=== PATIENT | female | born 1935 | race Caucasian/White ===

== ENCOUNTER 2018-02-28 13:50 | Observation (INO) ==
[2018-02-28] MEDS ORDERED: Morphine Sulfate Inj 2 MG/ML Vial IV.PUSH PRN (20:22)
[2018-02-28] MEDS ORDERED: Ibuprofen 400 MG Tablet PO PRN (20:22)
[2018-02-28] MEDS ORDERED: Morphine Inj 4 MG/ML Vial IV.PUSH PRN ×2 (20:22)
[2018-02-28] MEDS ORDERED: Naloxone Inj 0.4 MG/ML Vial IV.PUSH PRN (20:22)
[2018-02-28] MEDS ORDERED: Bisacodyl 10 MG Supp RECTAL PRN (20:24)
[2018-02-28] MEDS ORDERED: Dextrose 50% in Water 50 ML Vial IV.PUSH PRN (20:30)
[2018-02-28] MEDS: Sod Chloride 0.9% Inj 1,000 ML IV.CONT SCH (23:18)
[2018-02-28] MEDS: Senna/Docusate Sodium 8.6/50 MG Tablet PO SCH (23:21)
[2018-02-28] MEDS: Insulin NovoLOG Aspart Correctional Sugar Inj SQ SCH (23:27)
[2018-03-01] MEDS: Insulin NovoLOG Aspart Correctional Sugar Inj SQ SCH ×4 (07:32→21:12)
[2018-03-01] MEDS: Senna/Docusate Sodium 8.6/50 MG Tablet PO SCH ×2 (08:15→21:14)
[2018-03-01 10:31] LABS: Baso % (Auto) 0.5 % (0.0-2.0); Eos # (Auto) 0.1 th/mm3 (0.0-0.4); Eos % (Auto) 1.7 % (0.0-4.0); Hematocrit 37.3 % (35.0-46.0); Hemoglobin 12.5 gm/dL (11.6-15.3); Lymph # (Auto) 1.5 th/mm3 (1.0-4.8); Lymph % (Auto) 18.6 % (9.0-44.0); Mean Corpuscular HGB Conc 33.6 % (32.0-36.0); Mean Corpuscular Hemoglobin 29.6 pg (27.0-34.0); Mean Platelet Volume 7.9 fL (7.0-11.0); Mono # (Auto) 0.7 th/mm3 (0.0-0.9); Mono % (Auto) 8.9 % (0.0-8.0); Neut # (Auto) 5.5 th/mm3 (1.8-7.7); Neut % (Auto) 70.3 % (16.0-70.0); Platelet Count 370 th/mm3 (150-450); Red Blood Count 4.23 mil/mm3 (4.00-5.30); Red Cell Distribution Width 12.6 % (11.6-17.2); White Blood Count 7.8 th/mm3 (4.0-11.0)
[2018-03-01 10:38] LABS: Chloride 95 meq/L (98-107); Sodium 130 meq/L (136-145)
[2018-03-01 10:42] LABS: Calcium 8.3 mg/dL (8.5-10.1)
[2018-03-01 10:43] LABS: Albumin 3.3 g/dL (3.4-5.0); Anion Gap 10 meq/L (5-15); Blood Urea Nitrogen 16 mg/dL (7-18); Carbon Dioxide 24.6 meq/L (21.0-32.0); Glucose,Random 118 mg/dL (74-106); Lipase 239 U/L (73-393); Magnesium 1.8 mg/dL (1.5-2.5)
[2018-03-01 10:46] LABS: Alanine Aminotransferase 732 U/L (10-53); Aspartate Aminotransferase 531 U/L (15-37); Glomerular Filtration Rate 47 mL/min (>89)
[2018-03-01 10:47] LABS: Total Protein 6.7 g/dL (6.4-8.2)
[2018-03-01 10:49] LABS: Alkaline Phosphatase 107 U/L (45-117)
--- NOTE | 2018-03-01 12:33 | P.HP ---
History of Present Illness Primary Care Physician: UNKNOWN Chief Complaint: Abdominal pain History of Present Illness: This is a 83-year-old female with a history of diabetes and hypertension. Patient presents with abdominal pain. Started 2 days prior to admission when she lost her balance and fell hitting the back of her head against the chair and the wall. She did not lose consciousness. The following morning she complained of transient neck pain, headache, nausea and vomiting. Yesterday morning she woke up with constant upper abdominal pain associated with nausea and vomiting. No hematemesis. No precipitating or alleviating factors. No fever, chills constipation or diarrhea. She reports of urinary frequency. Trauma workup was unremarkable including cervical spine CT, head CT, chest CT and abdominal CT. She was found to have abnormal liver function tests on was advised further hospitalization. At this time, she feels better but continues to have upper abdominal pain and urinary frequency. Denies nausea tolerating diet. Patient has cholelithiasis and has right upper quadrant tenderness. All other systems reviewed negative Review of Systems All other systems reviewed negative except as stated in HPI [facility] - History History Provided By: Patient - Medical History Medical History: Medical History (Last Reviewed 03/01/18 @ 12:36 by Darrion Coleman MD) Diabetes Hx of hysterectomy Hypertension - Surgical History Surgical History: Surgical History (Last Reviewed 03/01/18 @ 12:36 by Darrion Coleman MD) Hx of appendectomy Hx of tonsillectomy - Family History Family History: Family History (Last Updated 03/01/18 @ 12:36 by Darrion Coleman MD) Other No pertinent family history - Tobacco History Second Hand Smoke Exposure: No Smoking Status: Never smoker - Alcohol History How Often Do You Have a Drink Containing Alcohol: Never - Substance Use History Substance History: No History of Abuse - Travel History Recent Travel in the [place] Within the Last 8 Weeks: No Recent Travel Out of the Country Within the Last 8 Weeks: No Medications and Allergies Active Medications: Active Medications Al Hydroxide/Mg Hydroxide (Milk Of Magnesia Liq) 30 ml PO Q12H PRN PRN Reason: Mild Constipation Bisacodyl (Dulcolax Supp) 10 mg RECTAL DAILY PRN PRN Reason: SEVERE CONSITIPATION Clonidine HCl (Catapres) 0.1 mg PO Q6H PRN PRN Reason: SEE LABEL COMMENTS Last Admin: 02/28/18 23:27 Dose: 0.1 mg Dextrose (D50w Vial) 50 ml IV.PUSH UNSCH PRN PRN Reason: PER HYPOGLYCEMIA PROTOCOL Enalaprilat (Vasotec Inj) 1.25 mg IV.PUSH Q6H PRN PRN Reason: SEE LABEL COMMENTS Glucagon (Glucagon Inj) 1 mg OTHER PRN PRN PRN Reason: for Hypoglycemia Protocol Sodium Chloride (Ns Inj) 1,000 mls @ 60 mls/hr IV.CONT .[id number] [facility] Last Infusion: 03/01/18 06:21 Dose: 60 mls/hr Ceftriaxone Sodium 1,000 mg/ (Sodium Chloride) 100 mls @ 200 mls/hr IV.SIG Q24H SHA Ibuprofen (Motrin) 400 mg PO Q6HR PRN PRN Reason: PAIN SCALE 1 TO 2 Insulin Aspart (Novolog Insulin Correctional Sugar Inj) 0 unit SQ ACHS [facility]; Protocol Last Admin: 03/01/18 11:56 Dose: Not Given Lactulose (Lactulose Liq) 30 ml PO DAILY PRN PRN Reason: SEVERE CONSITIPATION Morphine Sulfate (Morphine Inj) 1 mg IV.PUSH Q3H PRN PRN Reason: PAIN 3-5; IF UABLE TO TAKE PO Morphine Sulfate (Morphine Inj) 2 mg IV.PUSH Q3H PRN PRN Reason: PAIN 6-10;IF UNABLE TO TAKE PO Morphine Sulfate (Morphine Inj) 2 mg IV.PUSH Q3H PRN PRN Reason: BREAKTHROUGH PAIN Naloxone HCl (Narcan Inj) 0.4 mg IV.PUSH UNSCH PRN PRN Reason: SEE LABEL COMMENTS Ondansetron HCl (Zofran Inj) 4 mg IV.PUSH Q6H PRN PRN Reason: NAUSEA OR VOMITING Last Admin: 03/01/18 09:15 Dose: 4 mg Senna/Docusate Sodium (Taryn-Colace) 1 tab PO BID [facility] Last Admin: 03/01/18 08:15 Dose: Not Given Sennosides (Senokot) 17.2 mg PO Q12H PRN PRN Reason: Moderate Constipation Allergies Allergy/AdvReac Type Severity Reaction Status Date / Time codeine Allergy Vomiting Verified 02/28/18 14:20 Home Medications Medication Instructions Recorded Confirmed Type glyburide 2.5 mg PO DAILY 02/28/18 02/28/18 History losartan 100 mg PO DAILY 02/28/18 02/28/18 History metoprolol succinate [Toprol XL] 50 mg PO DAILY 02/28/18 02/28/18 History zolpidem [Ambien] 10 mg PO HS 02/28/18 02/28/18 History Exam Vital signs: Vital Signs 02/28/18 23:28 02/28/18 23:47 03/01/18 04:00 Temperature 96.9 F L 96.4 F L Pulse Rate 87 85 67 Respiratory Rate 18 18 Blood Pressure 193/87 H 124/60 Pulse Oximetry 96 100 03/01/18 08:00 Temperature 97.6 F Pulse Rate 78 Respiratory Rate 16 Blood Pressure 124/68 Pulse Oximetry 95 Intake & Output 02/28/18 03/01/18 03/01/18 18:59 06:59 18:59 Intake Total 510 / 510 Balance 510 / 510 Weight 57.3 kg Intake: IV 390 / 390 NS Inj 1,000 ML @ 60 mls/hr IV. 390 / 390 CONT .[id number] SHA Rx#: [id number] Oral 120 / 120 Other: # Voids 1 Date of Last Bowel Movement 02/27/18 02/27/18 Weight On Admission 57.2 kg Narrative: GENERAL: Well-developed, well-nourished in no distress SKIN: Warm and dry. HEAD: Atraumatic. Normocephalic. EYES: Pupils equal and round. No scleral icterus. No injection or drainage. ENT: No nasal bleeding or discharge. Mucous membranes pink and moist. NECK: Trachea midline. No JVD. Tender posterior neck. Full range of movement. CARDIOVASCULAR: Regular rate and rhythm. RESPIRATORY: No accessory muscle use. Clear to auscultation. Breath sounds equal bilaterally. GASTROINTESTINAL: Abdomen soft, tender right and left upper quadrants, nondistended. MUSCULOSKELETAL: Extremities without clubbing, cyanosis, or edema. No obvious deformities. No CVA tenderness NEUROLOGICAL: Awake and alert. No obvious cranial nerve deficits. Motor grossly within normal limits. Five out of 5 muscle strength in the arms and legs. Normal speech. PSYCHIATRIC: Appropriate mood and affect; insight and judgment normal. Results - Labs CBC & Chem 7: 03/01/18 10:06 03/01/18 10:06 Labs: Laboratory Results - last 24 hr 02/28/18 03/01/18 03/01/18 23:26 07:11 10:06 CBC w Diff Auto diff final WBC 7.8 RBC 4.23 Hgb 12.5 D Hct 37.3 MCV 88.0 MCH 29.6 MCHC 33.6 RDW 12.6 Plt Count 370 MPV 7.9 Neut % (Auto) 70.3 H Lymph % (Auto) 18.6 Kaufman % (Auto) 8.9 H Eos % (Auto) 1.7 Baso % (Auto) 0.5 Neut # (Auto) 5.5 Lymph # (Auto) 1.5 Kaufman # (Auto) 0.7 Eos # (Auto) 0.1 Baso # (Auto) 0.0 WBC Differential . Differential Comment . Sodium Potassium Chloride Carbon Dioxide Anion Gap BUN Creatinine Estimated GFR POC Glucose 137 H 128 H Random Glucose Calcium Magnesium Total Bilirubin AST ALT Alkaline Phosphatase Total Protein Albumin Lipase 03/01/18 10 10:06 11:49 CBC w Diff WBC RBC Hgb Hct MCV MCH MCHC RDW Plt Count MPV Neut % (Auto) Lymph % (Auto) Kaufman % (Auto) Eos % (Auto) Baso % (Auto) Neut # (Auto) Lymph # (Auto) Kaufman # (Auto) Eos # (Auto) Baso # (Auto) WBC Differential Differential Comment Sodium 130 L Potassium 4.0 Chloride 95 L Carbon Dioxide 24.6 Anion Gap 10 BUN 16 Creatinine 1.10 H Estimated GFR 47 L POC Glucose 141 H Random Glucose 118 H Calcium 8.3 L D Magnesium 1.8 Total Bilirubin 3.0 H AST 531 H ALT 732 H Alkaline Phosphatase 107 Total Protein 6.7 D Albumin 3.3 L D Lipase 239 Caprini VTE Risk Assessment Caprini VTE Risk Assessment: Moderate/High Risk (score >= 2) Caprini Risk Assessment Model: Point Value = 1 Point Value = 2 Point Value = 3 Point Value = 5 Age 41-60 Minor surgery BMI > 25 kg/m2 Swollen legs Varicose veins or History of unexplained or recurrent spontaneous Oral contraceptives or hormone replacement Sepsis (< 1 month) Serious lung disease, including pneumonia (< 1 month) Abnormal pulmonary function Acute myocardial infarction Congestive heart failure (< 1 month) History of inflammatory bowel disease Medical patient at bed rest Age 61-74 Arthroscopic surgery Major open surgery (> 45 min) Laparoscopic surgery (> 45 min) Malignancy Confined to bed (> 72 hours) Immobilizing plaster cast Central venous access Age >= 75 History of VTE Family history of VTE Factor V Leiden Prothrombin [id number] Lupus anticoagulant Anticardiolipin antibodies Elevated serum homocysteine Heparin-induced thrombocytopenia Other congenital or acquired thrombophilia Stroke (< 1 month) Elective arthroplasty Hip, pelvis, or leg fracture Acute spinal cord injury (< 1 month) Prophylaxis Regimen: Total Risk Factor Score Risk Level Prophylaxis Regimen 0-1 Low Early ambulation 2 Moderate Order ONE of the following: *Sequential Compression Device (SCD) *Heparin 5000 units SQ BID 3-4 Higher Order ONE of the following medications: *Heparin 5000 units SQ TID *Enoxaparin/Lovenox 40 mg SQ daily (WT < 150 kg, CrCl > 30 mL/min) *Enoxaparin/Lovenox 30 mg SQ daily (WT < 150 kg, CrCl > 10-29 mL/min) *Enoxaparin/Lovenox 30 mg SQ BID (WT < 150 kg, CrCl > 30 mL/min) AND/OR *Sequential Compression Device (SCD) 5 or more Highest Order ONE of the following medications: *Heparin 5000 units SQ TID (Preferred with Epidurals) *Enoxaparin/Lovenox 40 mg SQ daily (WT < 150 kg, CrCl > 30 mL/min) *Enoxaparin/Lovenox 30 mg SQ daily (WT < 150 kg, CrCl > 10-29 mL/min) *Enoxaparin/Lovenox 30 mg SQ BID (WT < 150 kg, CrCl > 30 mL/min) AND *Sequential Compression Device (SCD) Assessment and Plan - Plan This is a 83-year-old female with a history of diabetes and hypertension. Patient presents with abdominal pain, nausea and vomiting. She has right upper quadrant tenderness. Lipase within normal limits. LFTs are abnormal with total bilirubin 3, AST 531 and ALT 7032. Abdominal CT shows gallstone. CBD not dilated. Abdominal pain, nausea and vomiting. Symptomatic gallstones versus acute cholecystitis. Obtain HIDA scan and consult gastroenterology. Continue pain management with IV morphine counseled regarding narcotics. Consider general surgery consultation Head and neck contusion status post fall. Symptomatic treatment. Fall precautions. Physical therapy evaluation. Mild hyponatremia. Improved Urinary tract infection. Start Rocephin and follow cultures. Of note leukocytosis has improved Goiter. Asymptomatic. Outpatient follow-up Abnormal chest CT with minimal streaky density within the left posterior lung base and biapical nodule pleural thickening. Also has atelectatic changes. Incentive spirometry. Patient and advised to follow-up outpatient. DVT prophylaxis with bilateral SCD and early ambulation.
[2018-03-01] MEDS: Sod Chloride 0.9% Inj 1,000 ML IV.CONT SCH (13:25)
--- NOTE | 2018-03-01 16:55 | MR ---
EXAM DATE: 03/01/2018 3:16 PM EDT AGE/SEX: 83 years / Female INDICATIONS: Cholelithiasis. CLINICAL DATA: This is the patient's initial encounter. Patient reports that signs and symptoms have been present for 1 day and indicates a pain score of 4/10. MEDICAL/SURGICAL HISTORY: Diabetes mellitus type II. Hypertension. Tonsillectomy. Appendectom y. Hysterectomy. COMPARISON: DL, CT ABDOMEN & PELVIS W/O CONTRAST, 02/28/2018. . TECHNIQUE: Multiplanar, multisequence images of the abdomen were obtained without contrast including dedicated cholangiographic images. FINDINGS: Liver: The liver is homogeneous and normal in signal intensity with no focal defects. Intrahepatic Bile Ducts: There is no intrahepatic biliary ductal dilatation. Common Bile Duct: The common bile duct is normal in caliber No filling defects or obstructing lesio ns are identified. Gallbladder: There are multiple stones in the gallbladder. There is a trace of fluid around the gall bladder. No definite adjacent inflammatory changes are seen. Pancreas: The pancreas appears normal in signal with no focal parenchymal abnormalities. The pancrea tic duct is normal in caliber with no filling defects, or obstructing lesions identified. CONCLUSION: 1. There are multiple stones in the gallbladder. 2. No evidence of biliary tract obstruction. Electronically signed by: Irving Truong MD 03/01/2018 4:54 PM EDT
--- NOTE | 2018-03-01 18:42 | MB ---
cc: Reena Machuca MD, Jose R MD Zulfiqar, Hassan MD DATE: 03/01/2018 REASON FOR CONSULTATION: Elevated liver function tests, gallstones, nausea, vomiting and abdominal pain. HISTORY OF PRESENT ILLNESS: Ms. Hernandez is an 83-year-old lady basically came in with right upper quadrant pain, nausea, vomiting for 2 days. Workup here has revealed elevated liver function tests and cholelithiasis. Currently, she states her nausea, vomiting had subsided. She still has some right upper quadrant discomfort. REVIEW OF SYSTEMS: No fever or chills. No nausea or vomiting at this time. PAST MEDICAL HISTORY: Diabetes, hypertension. PAST SURGICAL HISTORY: Hysterectomy, appendectomy and tonsillectomy. SOCIAL HISTORY: No tobacco, no alcohol. FAMILY HISTORY: Noncontributory. CURRENT MEDICATIONS: Include: 1. Clonidine. 2. Enalapril. 3. Ceftriaxone. 4. Ibuprofen. 5. Insulin. 6. Lactulose. 7. Morphine. PHYSICAL EXAMINATION: GENERAL: Reveals a well-nourished man in no apparent distress. VITAL SIGNS: Stable. HEAD AND NECK: Anicteric sclerae. CHEST: Bilateral air entry with rales. ABDOMEN: Soft and nontender. No hepatosplenomegaly. Bowel sounds are present. CENTRAL NERVOUS SYSTEM: Nonfocal. RECTAL: Deferred at this time. LABORATORY DATA: White cell count is 7.8. Bilirubin is 3, AST 531, ALT 732, lipase 239. Alkaline phosphatase is 107. MRCP done recently reveals cholelithiasis, no choledocholithiasis, otherwise unremarkable. IMPRESSION: Cholelithiasis, possible cholecystitis. RECOMMENDATIONS: HIDA scan is scheduled for tomorrow, would recommend surgery consult. At this time there is no indication for an ERCP. The care so far and these findings have been discussed with the patient and her , Sandro over the phone. He is requesting that no interventions be undertaken on his without his explicit consent. We will follow with you. Thank you for this referral. Reena Machuca MD HZ/ct , 05:59 PM , 06:04 PM
[2018-03-02] MEDS: Sod Chloride 0.9% Inj 1,000 ML IV.CONT SCH (06:09)
[2018-03-02] MEDS: Insulin NovoLOG Aspart Correctional Sugar Inj SQ SCH ×4 (07:39→20:40)
[2018-03-02 08:22] LABS: Chloride 102 meq/L (98-107); Potassium 4.1 meq/L (3.5-5.1); Sodium 136 meq/L (136-145)
[2018-03-02 08:25] LABS: Albumin 3.6 g/dL (3.4-5.0); Anion Gap 11 meq/L (5-15); Blood Urea Nitrogen 11 mg/dL (7-18); Calcium 8.8 mg/dL (8.5-10.1); Carbon Dioxide 23.2 meq/L (21.0-32.0); Glucose,Random 104 mg/dL (74-106)
[2018-03-02 08:28] LABS: Alanine Aminotransferase 520 U/L (10-53); Aspartate Aminotransferase 268 U/L (15-37); Glomerular Filtration Rate 55 mL/min (>89)
[2018-03-02 08:30] LABS: Total Protein 7.1 g/dL (6.4-8.2)
[2018-03-02 08:31] LABS: Alkaline Phosphatase 111 U/L (45-117)
[2018-03-02] MEDS: Senna/Docusate Sodium 8.6/50 MG Tablet PO SCH ×2 (09:34→20:35)
--- NOTE | 2018-03-02 11:54 | NM ---
EXAM DATE: 03/02/2018 12:00 AM EDT AGE/SEX: 83 years / Female INDICATIONS: Right upper quadrant pain, nausea, vomiting for 2 days. Elevated liver function tests and cholelithiasis. CLINICAL DATA: This is the patient's initial encounter. Patient reports that signs and symptoms have been present for 2 days and indicates a pain score of 2/10. MEDICAL/SURGICAL HISTORY: Diabetes mellitus type II. Hypertension. Hysterectomy. Appendectomy . COMPARISON: . DOSE: 4.2 mCi Tc-99m mebrofenin i.v. TECHNIQUE: Following the intravenous administration of radiotracer, dynamic sequential images were pe rformed with continuous acquisition. Time-activity curves were generated. FINDINGS: Hepatic Kinetics: There is prompt uptake of radiotracer in the liver. No focal defects are seen. T here is normal rate of washout from the hepatic parenchyma. Biliary Clearance: Activity is first seen in the extrahepatic biliary system at 15 minutes. There i s normal excretion into the small bowel. Gallbladder: No activity is seen within the gallbladder throughout the study. Biliary-Enteric Reflux: None observed. CONCLUSION: No activity seen within the gallbladder. Cholecystitis needs to be considered. Electronically signed by: Sandro Rubin MD 03/02/2018 11:53 AM EDT
--- NOTE | 2018-03-02 12:07 | P.PN ---
Subjective Interval history: Follow-up abdominal pain. Improving abdominal pain worse with eating. Seen with who would like to avoid surgery if possible Physical Exam Vital signs: Vital Signs 03/01/18 16:00 03/01/18 20:00 03/02/18 00:00 Temperature 97.2 F L 97 F L 96.9 F L Pulse Rate 78 79 77 Respiratory Rate 17 20 20 Blood Pressure 160/70 H 144/67 H 171/77 H Pulse Oximetry 95 96 95 03/02/18 04:00 03/02/18 08:00 Temperature 96.3 F L 97.0 F L Pulse Rate 75 78 Respiratory Rate 20 16 Blood Pressure 142/95 H 142/94 H Pulse Oximetry 96 95 Intake & Output 03/01/18 03/02/18 03/02/18 18:59 06:59 18:59 Intake Total 1430 / 1430 1000 / 1000 Balance 1430 / 1430 1000 / 1000 Weight 57.5 kg Intake: IV 710 / 710 1000 / 1000 NS Inj 1,000 ML @ 60 mls/hr IV. 610 / 610 1000 / 1000 CONT .[id number] SHA Rx#: [id number] Rocephin Inj 1,000 MG In NS Inj 100 / 100 100 ML @ 200 mls/hr IV.SIG Q24H SHA Rx#:[id number] Oral 720 / 720 0 / 0 Other: # Voids 8 5 Date of Last Bowel Movement 02/27/18 02/27/18 03/01/18 # Bowel Movements 0 Narrative: GENERAL: Well-developed, well-nourished in no distress SKIN: Warm and dry. CARDIOVASCULAR: Regular rate and rhythm. RESPIRATORY: No accessory muscle use. Clear to auscultation. Breath sounds equal bilaterally. GASTROINTESTINAL: Abdomen soft, tender right and left upper quadrants, nondistended. MUSCULOSKELETAL: Extremities without clubbing, cyanosis, or edema. No obvious deformities. No CVA tenderness NEUROLOGICAL: Awake and alert. No obvious cranial nerve deficits. Motor grossly within normal limits. Five out of 5 muscle strength in the arms and legs. Normal speech. PSYCHIATRIC: Appropriate mood and affect; insight and judgment normal. Results - Labs CBC & Chem 7: 03/01/18 10:06 03/02/18 07:14 Laboratory Results - last 24 hr 03/01/18 03/01/18 03/01/18 10:06 16:15 21:04 Sodium Potassium Chloride Carbon Dioxide Anion Gap BUN Creatinine Estimated GFR POC Glucose 98 162 H Random Glucose Calcium Total Bilirubin AST ALT Alkaline Phosphatase Total Protein Albumin Acetaminophen Less than 2.0 L 03/02/18 03/02/18 03/02/18 07:14 07:26 11:42 Sodium 136 Potassium 4.1 Chloride 102 Carbon Dioxide 23.2 Anion Gap 11 BUN 11 Creatinine 0.96 Estimated GFR 55 L POC Glucose 96 82 Random Glucose 104 Calcium 8.8 Total Bilirubin 1.0 AST 268 H ALT 520 H Alkaline Phosphatase 111 Total Protein 7.1 Albumin 3.6 Acetaminophen - Imaging Impressions Cholangiopancreatography MRI 03/01/18 00:00 CONCLUSION: 1. There are multiple stones in the gallbladder. 2. No evidence of biliary tract obstruction. Hepatobiliary Scan Nuclear Medicine 03/02/18 00:00 CONCLUSION: No activity seen within the gallbladder. Cholecystitis needs to be considered. Assessment and Plan - Plan This is a 83-year-old female with a history of diabetes and hypertension. Patient presents with abdominal pain, nausea and vomiting. She has right upper quadrant tenderness. Lipase within normal limits. LFTs are abnormal with total bilirubin 3, AST 531 and ALT 7032. Abdominal CT shows gallstone. CBD not dilated. Abdominal pain, nausea and vomiting. Symptomatic gallstones versus acute cholecystitis. Unremarkable MRCP. Improving transaminitis still with abdominal pain. Follow-up official HIDA scan results to be completed tomorrow. General surgery consult. GI following. Continue pain management with IV morphine counseled regarding narcotics. Head and neck contusion status post fall. Symptomatic treatment. Fall precautions. Physical therapy evaluation. Mild hyponatremia. Improved Urinary tract infection. Culture with gram-negative alyssa continue Rocephin Goiter. Asymptomatic. Outpatient follow-up Abnormal chest CT with minimal streaky density within the left posterior lung base and biapical nodule pleural thickening. Also has atelectatic changes. Incentive spirometry. Patient and advised to follow-up outpatient. DVT prophylaxis with bilateral SCD and early ambulation. Discharge Planning: Per
--- NOTE | 2018-03-02 19:27 | P.CON ---
History of Present Illness Consult date: 03/02/18 Requesting Physician: Darrion Coleman Reason for Consult: Acute cholecystitis Primary Care Provider: UNKNOWN Chief Complaint: Abdominal pain History of Present Illness: The patient is an 83-year-old female who presents with a 2-day history of abdominal pain. She had nausea and vomiting that was persistent until today. She also banged her head and was seen on 02/28/2018 and [place]. Workup demonstrated no evidence of head injury. On workup of her head complaints she was found to have abnormal liver function tests. She does report some upper abdominal discomfort. Review of Systems All other systems reviewed negative except as stated in HPI [facility] - History History Provided By: Patient - Medical History Medical History: Medical History (Last Reviewed 03/01/18 @ 12:36 by Darrion Coleman MD) Diabetes Hx of hysterectomy Hypertension - Surgical History Surgical History: Surgical History (Last Reviewed 03/01/18 @ 12:36 by Darrion Coleman MD) Hx of appendectomy Hx of tonsillectomy - Family History Family History: Family History (Last Updated 03/01/18 @ 12:36 by Darrion Coleman MD) Other No pertinent family history - Tobacco History Second Hand Smoke Exposure: No Smoking Status: Never smoker - Alcohol History How Often Do You Have a Drink Containing Alcohol: Never - Substance Use History Substance History: No History of Abuse - Travel History Recent Travel in the [place] Within the Last 8 Weeks: No Recent Travel Out of the Country Within the Last 8 Weeks: No Medications and Allergies Active Medications: Active Medications Al Hydroxide/Mg Hydroxide (Milk Of Magnesia Liq) 30 ml PO Q12H PRN PRN Reason: Mild Constipation Bisacodyl (Dulcolax Supp) 10 mg RECTAL DAILY PRN PRN Reason: SEVERE CONSITIPATION Clonidine HCl (Catapres) 0.1 mg PO Q6H PRN PRN Reason: SEE LABEL COMMENTS Last Admin: 02/28/18 23:27 Dose: 0.1 mg Dextrose (D50w Vial) 50 ml IV.PUSH UNSCH PRN PRN Reason: PER HYPOGLYCEMIA PROTOCOL Enalaprilat (Vasotec Inj) 1.25 mg IV.PUSH Q6H PRN PRN Reason: SEE LABEL COMMENTS Glucagon (Glucagon Inj) 1 mg OTHER PRN PRN PRN Reason: for Hypoglycemia Protocol Sodium Chloride (Ns Inj) 1,000 mls @ 60 mls/hr IV.CONT .[id number] [facility] Last Infusion: 03/02/18 14:02 Dose: 0 mls/hr Ceftriaxone Sodium 1,000 mg/ (Sodium Chloride) 100 mls @ 200 mls/hr IV.SIG Q24H [facility] Last Infusion: 03/02/18 13:28 Dose: Infused Ibuprofen (Motrin) 400 mg PO Q6HR PRN PRN Reason: PAIN SCALE 1 TO 2 Last Admin: 03/01/18 13:23 Dose: 400 mg Insulin Aspart (Novolog Insulin Correctional Sugar Inj) 0 unit SQ ACHS [facility]; Protocol Last Admin: 03/02/18 17:14 Dose: Not Given Lactulose (Lactulose Liq) 30 ml PO DAILY PRN PRN Reason: SEVERE CONSITIPATION Losartan Potassium (Cozaar) 100 mg PO DAILY [facility] Morphine Sulfate (Morphine Inj) 1 mg IV.PUSH Q3H PRN PRN Reason: PAIN 3-5; IF UABLE TO TAKE PO Morphine Sulfate (Morphine Inj) 2 mg IV.PUSH Q3H PRN PRN Reason: PAIN 6-10;IF UNABLE TO TAKE PO Morphine Sulfate (Morphine Inj) 2 mg IV.PUSH Q3H PRN PRN Reason: BREAKTHROUGH PAIN Naloxone HCl (Narcan Inj) 0.4 mg IV.PUSH UNSCH PRN PRN Reason: SEE LABEL COMMENTS Ondansetron HCl (Zofran Inj) 4 mg IV.PUSH Q6H PRN PRN Reason: NAUSEA OR VOMITING Last Admin: 03/01/18 09:15 Dose: 4 mg Senna/Docusate Sodium (Taryn-Colace) 1 tab PO BID [facility] Last Admin: 03/02/18 09:34 Dose: Not Given Sennosides (Senokot) 17.2 mg PO Q12H PRN PRN Reason: Moderate Constipation Zolpidem Tartrate (Ambien) 10 mg PO HS PRN PRN Reason: INSOMNIA Allergies Allergy/AdvReac Type Severity Reaction Status Date / Time codeine Allergy Vomiting Verified 02/28/18 14:20 Home Medications Medication Instructions Recorded Confirmed Type glyburide 2.5 mg PO DAILY 02/28/18 02/28/18 History losartan 100 mg PO DAILY 02/28/18 02/28/18 History metoprolol succinate [Toprol XL] 50 mg PO DAILY 02/28/18 02/28/18 History zolpidem [Ambien] 10 mg PO HS 02/28/18 02/28/18 History Physical Exam Vital signs: Vital Signs 03/01/18 20:00 03/02/18 00:00 03/02/18 04:00 Temperature 97 F L 96.9 F L 96.3 F L Pulse Rate 79 77 75 Respiratory Rate 20 20 20 Blood Pressure 144/67 H 171/77 H 142/95 H Pulse Oximetry 96 95 96 03/02/18 08:00 03/02/18 12:00 Temperature 97.0 F L 97.0 F L Pulse Rate 78 86 Respiratory Rate 16 17 Blood Pressure 142/94 H 146/88 H Pulse Oximetry 95 95 Intake & Output 03/02/18 03/02/18 03/03/18 06:59 18:59 06:59 Intake Total 1000 / 1000 500 / 500 Balance 1000 / 1000 500 / 500 Weight 57.5 kg Intake: IV 1000 / 1000 500 / 500 NS Inj 1,000 ML @ 60 mls/hr IV. 1000 / 1000 400 / 400 CONT .[id number] SHA Rx#: [id number] Rocephin Inj 1,000 MG In NS Inj 100 / 100 100 ML @ 200 mls/hr IV.SIG Q24H SHA Rx#:[id number] Oral 0 / 0 Other: # Voids 5 Date of Last Bowel Movement 02/27/18 03/01/18 - Constitutional no acute distress - Routine HEENT Exam Head: Present: normocephalic - Routine Respiratory Exam Present: CTA bilaterally - Routine Cardiovascular Exam Present: RRR - Routine Abdominal Exam Present: soft, tenderness (Mild right upper quadrant and right-sided abdominal tenderness; no guarding) Comments: Well-healed Pfannenstiel incision without hernia - Routine Skin Exam Present: intact (No jaundice) Assessment and Plan - Assessment (1) Acute cholecystitis due to biliary calculus Code(s): K80.00 - Calculus of gallbladder with acute cholecystitis without obstruction Status: Acute Plan: We will recheck labs in the a.m. and check a serum lipase. We will likely proceed with cholecystectomy in next 24 hours once I have spoken with the patient's . Okay for patient to have clear liquids until surgical plan finalized. - Plan Discussed Condition With: Patient Nurse - Attending Attestation I attest that I had a [id number] encounter with the patient on the same day, and personally performed and documented my assessment and findings in the medical record. The following services were provided during this hospital visit: Chart data review, vital sign assessments/reviewing monitor data Review of consultation notes if present Medication orders/review and/or management Ordering and/or reviewing lab tests Ordering and/or interpreting/reviewing x-rays and/or diagnostic studies Care of the patient and discussion of the patient with the care team Documentation time To help prompt me to consider important information that might be impacting today's encounter and assessment, Information from prior notes written by myself or my colleagues may have been "brought forward/copy and pasted" into today's note.
[2018-03-03] MEDS: Sod Chloride 0.9% Inj 1,000 ML IV.CONT SCH (01:25)
[2018-03-03 06:03] LABS: Chloride 99 meq/L (98-107); Potassium 3.7 meq/L (3.5-5.1); Sodium 134 meq/L (136-145)
[2018-03-03 06:06] LABS: Albumin 3.3 g/dL (3.4-5.0); Anion Gap 11 meq/L (5-15); Calcium 8.5 mg/dL (8.5-10.1); Carbon Dioxide 24.5 meq/L (21.0-32.0); Glucose,Random 97 mg/dL (74-106); Magnesium 2.2 mg/dL (1.5-2.5)
[2018-03-03 06:07] LABS: Blood Urea Nitrogen 12 mg/dL (7-18)
[2018-03-03 06:09] LABS: Alanine Aminotransferase 339 U/L (10-53)
[2018-03-03 06:10] LABS: Aspartate Aminotransferase 112 U/L (15-37); Glomerular Filtration Rate 65 mL/min (>89)
[2018-03-03 06:11] LABS: Total Protein 6.6 g/dL (6.4-8.2)
[2018-03-03 06:12] LABS: Alkaline Phosphatase 96 U/L (45-117)
[2018-03-03 06:44] LABS: Lipase 215 U/L (73-393)
[2018-03-03] MEDS: Insulin NovoLOG Aspart Correctional Sugar Inj SQ SCH (08:00)
[2018-03-03] MEDS: Senna/Docusate Sodium 8.6/50 MG Tablet PO SCH (08:00)
[2018-03-03 08:22] VITALS: RESP 20; TEMP 96.6; O2SAT 97
--- NOTE | 2018-03-03 09:38 | P.PN ---
Subjective Interval history: Follow-up abdominal pain. She is doing okay denies abdominal pain tolerating diet. Patient and have decided they do not want surgery at this time and want to go home. Encouraged to talk to the general surgeon before going home today. Physical Exam Vital signs: Vital Signs 03/02/18 12:00 03/02/18 20:00 03/03/18 00:00 Temperature 97.0 F L 97.7 F 96.4 F L Pulse Rate 86 89 76 Respiratory Rate 17 16 16 Blood Pressure 146/88 H 194/94 H 138/68 Pulse Oximetry 95 97 99 03/03/18 04:00 03/03/18 08:00 Temperature 97.0 F L 96.6 F L Pulse Rate 77 90 Respiratory Rate 16 20 Blood Pressure 142/79 H 185/80 H Pulse Oximetry 96 97 Intake & Output 03/02/18 03/03/18 03/03/18 18:59 06:59 18:59 Intake Total 500 / 500 800 / 800 Balance 500 / 500 800 / 800 Weight 57.5 kg Intake: IV 500 / 500 600 / 600 NS Inj 1,000 ML @ 60 mls/hr IV. 400 / 400 600 / 600 CONT .[id number] SHA Rx#: [id number] Rocephin Inj 1,000 MG In NS Inj 100 / 100 100 ML @ 200 mls/hr IV.SIG Q24H SHA Rx#:[id number] Oral 200 / 200 Other: # Voids 1 Date of Last Bowel Movement 03/01/18 Narrative: GENERAL: Well-developed, well-nourished in no distress SKIN: Warm and dry. CARDIOVASCULAR: Regular rate and rhythm. RESPIRATORY: No accessory muscle use. Clear to auscultation. Breath sounds equal bilaterally. GASTROINTESTINAL: Abdomen soft, slightly tender right and left upper quadrants, nondistended. MUSCULOSKELETAL: Extremities without clubbing, cyanosis, or edema. No obvious deformities. No CVA tenderness NEUROLOGICAL: Awake and alert. No obvious cranial nerve deficits. Motor grossly within normal limits. Five out of 5 muscle strength in the arms and legs. Normal speech. PSYCHIATRIC: Appropriate mood and affect; insight and judgment normal. Results - Labs CBC & Chem 7: 03/01/18 10:06 03/03/18 05:05 Laboratory Results - last 24 hr 03/02/18 03/02/18 03/02/18 11:42 16:23 20:32 Sodium Potassium Chloride Carbon Dioxide Anion Gap BUN Creatinine Estimated GFR POC Glucose 82 111 H 124 H Random Glucose Calcium Magnesium Total Bilirubin AST ALT Alkaline Phosphatase Total Protein Albumin Lipase 03/03/18 05:05 Sodium 134 L Potassium 3.7 Chloride 99 Carbon Dioxide 24.5 Anion Gap 11 BUN 12 Creatinine 0.84 Estimated GFR 65 L POC Glucose Random Glucose 97 Calcium 8.5 Magnesium 2.2 Total Bilirubin 0.8 AST 112 H ALT 339 H Alkaline Phosphatase 96 Total Protein 6.6 Albumin 3.3 L Lipase 215 - Imaging Impressions Hepatobiliary Scan Nuclear Medicine 03/02/18 00:00 CONCLUSION: No activity seen within the gallbladder. Cholecystitis needs to be considered. - Procedures none Assessment and Plan - Plan This is a 83-year-old female with a history of diabetes and hypertension. Patient presents with abdominal pain, nausea and vomiting. She has right upper quadrant tenderness. Lipase within normal limits. LFTs are abnormal with total bilirubin 3, AST 531 and ALT 7032. Abdominal CT shows gallstone. CBD not dilated. Abdominal pain, nausea and vomiting. Symptomatic gallstones versus acute cholecystitis. Unremarkable MRCP. Improving abdominal pain and transaminitis. Follow-up official HIDA scan results today. General surgery recommended cholecystectomy however patient and would like to defer surgery at this time. GI following. Continue pain management with IV morphine counseled regarding narcotics. Head and neck contusion status post fall. Symptomatic treatment. Fall precautions. Physical therapy evaluation. Mild hyponatremia. Improved E. coli urinary tract infection. Continue Rocephin Goiter. Asymptomatic. Outpatient follow-up Abnormal chest CT with minimal streaky density within the left posterior lung base and biapical nodule pleural thickening. Also has atelectatic changes. Incentive spirometry. Patient and advised to follow-up outpatient. DVT prophylaxis with bilateral SCD and early ambulation. Discharge Planning: Possible discharge today
[2018-03-03 09:53] VITALS: BP 155/72; PULSE 73
--- NOTE | 2018-03-03 10:21 | P.PN ---
Subjective Interval history: Long discussion with patient and ; they would like to go home as it is a fair distance from their home in [place]. Both Dr. Coleman and I have indicated to them that she may get sicker and require readmission through the emergency department. They vocalized clear understanding of this but would like to go home and arrange this as an outpatient if possible. I indicated that I would be available to do this, but that I recommended she have her surgery while she is still in the hospital. Physical Exam Vital signs: Vital Signs 03/02/18 12:00 03/02/18 20:00 03/03/18 00:00 Temperature 97.0 F L 97.7 F 96.4 F L Pulse Rate 86 89 76 Respiratory Rate 17 16 16 Blood Pressure 146/88 H 194/94 H 138/68 Pulse Oximetry 95 97 99 03/03/18 04:00 03/03/18 08:00 03/03/18 09:52 Temperature 97.0 F L 96.6 F L Pulse Rate 77 90 73 Respiratory Rate 16 20 Blood Pressure 142/79 H 185/80 H 155/72 H Pulse Oximetry 96 97 Intake & Output 03/02/18 03/03/18 03/03/18 18:59 06:59 18:59 Intake Total 500 / 500 800 / 800 Balance 500 / 500 800 / 800 Weight 57.5 kg Intake: IV 500 / 500 600 / 600 NS Inj 1,000 ML @ 60 mls/hr IV. 400 / 400 600 / 600 CONT .[id number] SHA Rx#: [id number] Rocephin Inj 1,000 MG In NS Inj 100 / 100 100 ML @ 200 mls/hr IV.SIG Q24H SHA Rx#:[id number] Oral 200 / 200 Other: # Voids 1 Date of Last Bowel Movement 03/01/18 - Constitutional no acute distress - Routine Abdominal Exam Present: soft Results - Labs CBC & Chem 7: 03/01/18 10:06 03/03/18 05:05 Laboratory Results - last 24 hr 03/02/18 03/02/18 03/02/18 11:42 16:23 20:32 Sodium Potassium Chloride Carbon Dioxide Anion Gap BUN Creatinine Estimated GFR POC Glucose 82 111 H 124 H Random Glucose Calcium Magnesium Total Bilirubin AST ALT Alkaline Phosphatase Total Protein Albumin Lipase 03/03/18 05:05 Sodium 134 L Potassium 3.7 Chloride 99 Carbon Dioxide 24.5 Anion Gap 11 BUN 12 Creatinine 0.84 Estimated GFR 65 L POC Glucose Random Glucose 97 Calcium 8.5 Magnesium 2.2 Total Bilirubin 0.8 AST 112 H ALT 339 H Alkaline Phosphatase 96 Total Protein 6.6 Albumin 3.3 L Lipase 215 - Imaging Impressions Hepatobiliary Scan Nuclear Medicine 03/02/18 00:00 CONCLUSION: No activity seen within the gallbladder. Cholecystitis needs to be considered. Assessment and Plan - Assessment (1) Acute cholecystitis due to biliary calculus Code(s): K80.00 - Calculus of gallbladder with acute cholecystitis without obstruction Status: Acute Plan: Recommend cholecystectomy while the patient is still an inpatient due to the fact that she has acute cholecystitis. Patient and her express a desire to be discharged from the hospital and handle this as an outpatient. Both Dr. Coleman and I do not recommend this, as she may deteriorate and require readmission and do much more poorly if she gets sick again. They vocalized clear understanding of this and will make a decision. - Attending Attestation I attest that I had a [id number] encounter with the patient on the same day, and personally performed and documented my assessment and findings in the medical record. The following services were provided during this hospital visit: Chart data review, vital sign assessments/reviewing monitor data Review of consultation notes if present Medication orders/review and/or management Ordering and/or reviewing lab tests Ordering and/or interpreting/reviewing x-rays and/or diagnostic studies Care of the patient and discussion of the patient with the care team Documentation time To help prompt me to consider important information that might be impacting today's encounter and assessment, Information from prior notes written by myself or my colleagues may have been "brought forward/copy and pasted" into today's note.
--- NOTE | 2018-03-03 10:25 | P.DS ---
Date of admission: 02/28/18 23:11 Primary care physician: UNKNOWN Brief History from admission: This is a 83-year-old female with a history of diabetes and hypertension. Patient presents with abdominal pain. Started 2 days prior to admission when she lost her balance and fell hitting the back of her head against the chair and the wall. She did not lose consciousness. The following morning she complained of transient neck pain, headache, nausea and vomiting. Yesterday morning she woke up with constant upper abdominal pain associated with nausea and vomiting. No hematemesis. No precipitating or alleviating factors. No fever, chills constipation or diarrhea. She reports of urinary frequency. Trauma workup was unremarkable including cervical spine CT, head CT, chest CT and abdominal CT. She was found to have abnormal liver function tests on was advised further hospitalization. At this time, she feels better but continues to have upper abdominal pain and urinary frequency. Denies nausea tolerating diet. Patient has cholelithiasis and has right upper quadrant tenderness. All other systems reviewed negative DS: Summary Hospital Course: This is a 83-year-old female with a history of diabetes and hypertension. Patient presents with abdominal pain, nausea and vomiting. She has right upper quadrant tenderness. Lipase within normal limits. LFTs are abnormal with total bilirubin 3, AST 531 and ALT 7032. Abdominal CT shows gallstone. CBD not dilated. Abdominal pain, nausea and vomiting. Symptomatic gallstones versus acute cholecystitis. Unremarkable MRCP. Improving abdominal pain and transaminitis. General surgery recommended cholecystectomy however patient and would like to defer surgery at this time fully aware of risks and possible complications kartik ruptured GB. Continue pain management counseled regarding narcotics. Head and neck contusion status post fall. Symptomatic treatment. Fall precautions. Physical therapy evaluation. Mild hyponatremia. Improved E. coli urinary tract infection. Continue Rocephin Goiter. Asymptomatic. Outpatient follow-up Abnormal chest CT with minimal streaky density within the left posterior lung base and biapical nodule pleural thickening. Also has atelectatic changes. Incentive spirometry. Patient and advised to follow-up outpatient. DVT prophylaxis with bilateral SCD and early ambulation. - Time Spent with Patient Total time spent providing and/or coordinating discharge services: Greater than 30 minutes - Quality: VTE Deep Vein Thrombosis/Pulmonary Embolism Present on Admission: No Exam Vital signs: Vital Signs 03/02/18 12:00 03/02/18 20:00 03/03/18 00:00 Temperature 97.0 F L 97.7 F 96.4 F L Pulse Rate 86 89 76 Respiratory Rate 17 16 16 Blood Pressure 146/88 H 194/94 H 138/68 Pulse Oximetry 95 97 99 03/03/18 04:00 03/03/18 08:00 03/03/18 09:52 Temperature 97.0 F L 96.6 F L Pulse Rate 77 90 73 Respiratory Rate 16 20 Blood Pressure 142/79 H 185/80 H 155/72 H Pulse Oximetry 96 97 Intake & Output 03/02/18 03/03/18 03/03/18 18:59 06:59 18:59 Intake Total 500 / 500 800 / 800 Balance 500 / 500 800 / 800 Weight 57.5 kg Intake: IV 500 / 500 600 / 600 NS Inj 1,000 ML @ 60 mls/hr IV. 400 / 400 600 / 600 CONT .[id number] SHA Rx#: [id number] Rocephin Inj 1,000 MG In NS Inj 100 / 100 100 ML @ 200 mls/hr IV.SIG Q24H SHA Rx#:[id number] Oral 200 / 200 Other: # Voids 1 Date of Last Bowel Movement 03/01/18 Narrative: GENERAL: Well-developed, well-nourished in no distress SKIN: Warm and dry. CARDIOVASCULAR: Regular rate and rhythm. RESPIRATORY: No accessory muscle use. Clear to auscultation. Breath sounds equal bilaterally. GASTROINTESTINAL: Abdomen soft, slightly tender right and left upper quadrants, nondistended. MUSCULOSKELETAL: Extremities without clubbing, cyanosis, or edema. No obvious deformities. No CVA tenderness NEUROLOGICAL: Awake and alert. No obvious cranial nerve deficits. Motor grossly within normal limits. Five out of 5 muscle strength in the arms and legs. Normal speech. PSYCHIATRIC: Appropriate mood and affect; insight and judgment normal. Results Procedures completed during hospitalization: none Labs on day of discharge: Labs from last 24 hours 03/03/18 03/02/18 03/02/18 05:05 20:32 16:23 Sodium 134 L Potassium 3.7 Chloride 99 Carbon Dioxide 24.5 Anion Gap 11 BUN 12 Creatinine 0.84 Estimated GFR 65 L POC Glucose 124 H 111 H Random Glucose 97 Calcium 8.5 Magnesium 2.2 Total Bilirubin 0.8 AST 112 H ALT 339 H Alkaline Phosphatase 96 Total Protein 6.6 Albumin 3.3 L Lipase 215 03/02/18 11:42 Sodium Potassium Chloride Carbon Dioxide Anion Gap BUN Creatinine Estimated GFR POC Glucose 82 Random Glucose Calcium Magnesium Total Bilirubin AST ALT Alkaline Phosphatase Total Protein Albumin Lipase - Impressions ITS Impressions Cholangiopancreatography MRI 03/01/18 00:00 CONCLUSION: 1. There are multiple stones in the gallbladder. 2. No evidence of biliary tract obstruction. Hepatobiliary Scan Nuclear Medicine 03/02/18 00:00 CONCLUSION: No activity seen within the gallbladder. Cholecystitis needs to be considered. Discharge Plan - Discharge Disposition Patient Disposition: Discharge Home - Discharge Condition Condition: Stable - Discharge Order Discharge Orders: Discharge Order (Routine); Ordered 03/03/18 Ordered By: Darrion Colmean - Physicians Team Primary Care Provider: UNKNOWN, Attending Provider: Darrion Coleman Other Providers: Reena Machuca MD ; Zayda Priest ; Yanick Cummins MD - Rxs /Orders / Referrals /Forms Prescriptions: New amoxicillin-pot clavulanate [Augmentin] 875-125 mg Tablet 1 tab PO BID Qty: 10 RF: 0 Continue glyburide 2.5 mg Tablet 2.5 mg PO DAILY losartan 100 mg Tablet 100 mg PO DAILY metoprolol succinate [Toprol XL] 50 mg Tablet Extended Release 24 Hr 50 mg PO DAILY zolpidem [Ambien] 5 mg Tablet 10 mg PO HS Referrals: Yanick Cummins MD [GENERAL SURGERY] - See Instructions (1wk) UNKNOWN, [Primary Care Provider] - See Instructions (1wk) - Discharge Instructions Patient Printed Instructions: Gallbladder Ejection Fraction (GEN), HIDA Scan ( GEN) - Post Discharge Care Plan Care Plan Goals: Your Health Problems: Goals to Promote Your Health: * To prevent worsening of your condition * To maintain your health at the optimal level Directions to Meet Your Goals: * Take your medications as prescribed * Follow your dietary instruction * Follow activity as directed * Keep your appointments as scheduled * Take your immunizations and boosters as scheduled * If your symptoms worsen call your PCP * If no PCP go to Urgent Care or Emergency Room Smoking is dangerous to your health. Avoid second hand smoke. You may reach the 24-hour crisis hotline for domestic abuse at .
== END 2018-03-03 10:56 | disposition home or self-care (01) ==
LOC: PHEDA 13:50 → PHEDDLT 13:50 → PH3 23:26
PROVIDERS: ADMIT Internal Medicine; ATTEND Internal Medicine